=== PATIENT | female | born 1970 | race Caucasian/White ===

== ENCOUNTER 2020-06-02 06:34 | Day surgery (SDC) | payer BC ==
[2020-06-02] MEDS ORDERED: Bupivacaine 0.5% 50 ML MDV ONE (06:50)
[2020-06-02] MEDS ORDERED: Lidocaine 1% with EPINEPHrine 1:100,000 50 ML MDV ONE (06:50)
[2020-06-02] MEDS ORDERED: Rocuronium 50 MG/5 ML Vial ONE (07:12)
[2020-06-02] MEDS ORDERED: Dexamethasone 4 MG/ML SDV ONE (07:12)
[2020-06-02] MEDS ORDERED: Glycopyrrolate 0.2 MG/ML 5 ML MDV ONE (07:12)
[2020-06-02] MEDS ORDERED: Ondansetron 4 MG/2 ML SDV ONE (07:12)
[2020-06-02] MEDS ORDERED: Succinylcholine 200 MG/10 ML MDV ONE (07:12)
[2020-06-02] MEDS ORDERED: Propofol 200 MG/20 ML SDV ONE (07:12)
[2020-06-02] MEDS ORDERED: Neostigmine Methylsulfate 1 MG/ML 5 ML Syringe ONE (07:12)
[2020-06-02] MEDS ORDERED: fentaNYL 250 MCG/5 ML SDV ONE ×2 (07:13→08:04)
[2020-06-02] MEDS ORDERED: Albuterol/Ipratropium 3.0-0.5 MG/3 ML Neb Soln NEB ONE (07:30)
[2020-06-02] MEDS ORDERED: metroNIDAZOLE/Normal Saline 500 MG in Premix Bag 1 BAG IV ONE (07:30)
[2020-06-02] MEDS: Sodium Chloride 0.9% 1,000 ML IV SCH ×2 (07:39→11:47)
[2020-06-02] MEDS ORDERED: Ketorolac 60 MG/2 ML SDV ONE (08:20)
[2020-06-02] MEDS ORDERED: Sugammadex Sodium 200 MG/2 ML VIAL ONE (08:33)
[2020-06-02] MEDS ORDERED: Benzocaine/Cetylpyridinium/Menthol Lozenge MUCMEM PRN (08:41)
[2020-06-02] MEDS ORDERED: hydrOXYzine HCL 100 MG/2 ML SDV IM PRN (08:41)
[2020-06-02] MEDS ORDERED: Docusate Sodium 100 MG Cap PO PRN (08:41)
[2020-06-02] MEDS ORDERED: Acetaminophen/HYDROcodone 325-5 MG Tab PO PRN (08:41)
[2020-06-02] MEDS ORDERED: Zolpidem 5 MG Tab PO PRN (08:41)
--- NOTE | 2020-06-02 11:17 | OR ---
DATE OF PROCEDURE: 06/02/2020 SURGEON: Harlan Fine MD PROCEDURE: Laparoscopic ventral hernia repair of incarcerated hernia. COMPLICATIONS: None. SHADOW GRAPH WEIGHT OPERATOR: None. ANESTHESIA: General. RISKS: Risks, benefits, alternatives, and limitations including but not limited to infection, bleeding, perforation of abdominal structures, injury to blood vessels, injury to bowel, possibility of open surgery, seroma, hematoma, and other risks not listed here along with general cardiovascular risks were explained to the patient and she wished to proceed. We also discussed the increased risk of complications secondary to morbid obesity and diabetes. PROCEDURE IN DETAIL: The patient was placed in supine position in the right mid abdomen. A Veress needle was used to enter the abdomen without abnormality. A drop test was performed without abnormality. The abdomen was subsequently insufflated. This was followed by an Optiview trocar. No evidence of enterotomy or injury was noted. Two additional 5 mm ports were entered under direct visualization. A 2.5 cm hernia was noted. This was repaired with 11 cm piece of mesh. This was then introduced intact in circumferential fashion. The tacks were placed approximately every 1 cm. Prior to this, the incarcerated omentum was removed gently and the sac was also removed and not sent to pathology. The air was then deflated to 7. The entry point was inspected for injury, enterotomy, or other abnormalities. None were noted. The omentum which was removed was inspected for hemostasis which was achieved. The remainder of the air was then removed. The procedure was terminated. Of note, the fascial closure device was passed through the umbilicus to facilitate inflation of the balloon mesh. The wounds were closed with 3-0 Vicryl and 4-0 Vicryl in interrupted running fashion. Dermabond was applied. The patient tolerated the procedure well. Harlan Fine MD /[id number]
--- NOTE | 2020-06-02 12:04 | OR ---
DATE OF PROCEDURE: 06/02/2020 SURGEON: Harlan Fine MD PROCEDURE: Bilateral transversus abdominis plane block. COMPLICATIONS: None. CURRICULUM FACILITATOR: None. RISKS: Risks, benefits, alternatives, and limitations including, but not limited to infection, bleeding, injury to abdominal structures were explained to the patient who wished to proceed. PROCEDURE IN DETAIL: The patient was placed in supine position. Left transversus plane was identified first. 80% of the solution was injected under direct visualization. The right side was then performed in a same manner, same fashion, same technique, and same sequence using the same equipment. The patient tolerated the procedure well. Harlan Fine MD /[id number]
== END 2020-06-02 14:50 | disposition home or self-care (01) ==
LOC: JP.SDS 06:34 → JP.MS 08:41 → JP.SDS 14:50
PROVIDERS: ATTEND Surgery
DX: K43.6 Other and unspecified ventral hernia with obstruction, without gangrene (principal); E11.65 Type 2 diabetes mellitus with hyperglycemia; F17.210 Nicotine dependence, cigarettes, uncomplicated; J44.9 Chronic obstructive pulmonary disease, unspecified; F32.9 Major depressive disorder, single episode, unspecified; F25.9 Schizoaffective disorder, unspecified; Z98.890 Other specified postprocedural states; Z79.899 Other long term (current) drug therapy; Z79.4 Long term (current) use of insulin; Z88.8 Allergy status to other drugs, medicaments and biological substances
CPT/HCPCS: 49653; 81025; 94640; A9270; C1713; C1781; J0171; J0330; J0690; J1100; J1885; J2405; J2704; J2710; J2795; J3010; J3490; J7030; J7060; J7620-GY